=== PATIENT | female | born 1950 | race Native Hawaiian/Other Pacific Islander ===

== ENCOUNTER 2020-05-28 08:06 | Outpatient (CLI) | payer OTHER ==
[2020-05-28 08:21] LABS: PLATELET COUNT 206 K/uL (152-353)
== END 2020-05-28 18:56 | disposition home or self-care (01) ==
LOC: LABW 08:06
PROVIDERS: ATTEND Internal Medicine Gastroenterology
DX: K74.69 Other cirrhosis of liver (principal); Z79.899 Other long term (current) drug therapy
CPT/HCPCS: 36415; 80053; 82172; 82247; 82465; 82947; 82977; 83010; 83883; 84450; 84460; 84478; 85027; 85610

== ENCOUNTER 2020-07-21 10:41 | Outpatient (CLI) | payer OTHER ==
[2020-07-21 10:58] LABS: PLATELET COUNT 147 K/uL (152-353)
[2020-07-21 11:45] LABS: POTASSIUM 4.5 mmol/L (3.6-5.2)
== END 2020-07-21 19:38 | disposition home or self-care (01) ==
LOC: LABW 10:41
PROVIDERS: ATTEND Internal Medicine Cardiovascular Disease
DX: I48.91 Unspecified atrial fibrillation (principal); R06.09 Other forms of dyspnea; Z79.899 Other long term (current) drug therapy
CPT/HCPCS: 36415; 80048; 80076; 83880; 84436; 84443; 85027

== ENCOUNTER 2020-09-02 17:03 | Outpatient (CLI) | payer OTHER ==
[2020-09-02 17:29] LABS: PLATELET COUNT 177 K/uL (152-353)
[2020-09-02 18:43] LABS: POTASSIUM 3.7 mmol/L (3.6-5.2)
== END 2020-09-02 20:36 | disposition home or self-care (01) ==
LOC: LABW 17:03
PROVIDERS: ATTEND Internal Medicine Cardiovascular Disease
DX: I48.91 Unspecified atrial fibrillation (principal); R53.83 Other fatigue; Z09 Encounter for follow-up examination after completed treatment for conditions other than malignant neoplasm
CPT/HCPCS: 36415; 80048; 80162; 85027

== ENCOUNTER 2021-02-08 16:27 | Outpatient (CLI) | payer OTHER ==
[2021-02-09] MEDS ORDERED: BENAZEPRIL HYDR20 MG PO (18:52)
[2021-02-09] MEDS ORDERED: KAPSPARGO SPRIN50 MG PO (18:52)
[2021-02-09] MEDS ORDERED: DIGOX125 MCG PO (18:52)
[2021-02-09] MEDS ORDERED: LYRICA100 MG PO (18:53)
[2021-02-09] MEDS ORDERED: FURO20TA67 PO (18:53)
[2021-02-09] MEDS ORDERED: ZYRTEC ALLGY10 M1 PO (18:54)
[2021-02-09] MEDS ORDERED: METFTAB PO (18:54)
[2021-02-09] MEDS ORDERED: ELIQUIS5 MG PO (18:54)
[2021-02-09] MEDS ORDERED: [UNRECOGNIZED DRUG - REMARK] PO (18:55)
== END 2021-02-08 22:27 | disposition home or self-care (01) ==
LOC: LAB 16:27
PROVIDERS: ATTEND Internal Medicine
DX: R19.7 Diarrhea, unspecified (principal); E11.9 Type 2 diabetes mellitus without complications; R53.83 Other fatigue
CPT/HCPCS: 82272; 83630; 87015; 87045; 87324; 87328; 87329; 87449; 87899

== ENCOUNTER 2021-02-09 18:46 | Emergency (ER) | payer OTHER ==
[~2021-02-09] VITALS: Ht 170.2 cm; Wt 90.7 kg
[2021-02-09] MEDS ORDERED: KAPSPARGO SPRIN50 MG PO (18:52)
[2021-02-09] MEDS ORDERED: DIGOX125 MCG PO (18:52)
[2021-02-09] MEDS ORDERED: BENAZEPRIL HYDR20 MG PO (18:52)
[2021-02-09] MEDS ORDERED: LYRICA100 MG PO (18:53)
[2021-02-09] MEDS ORDERED: FURO20TA67 PO (18:53)
[2021-02-09] MEDS ORDERED: ZYRTEC ALLGY10 M1 PO (18:54)
[2021-02-09] MEDS ORDERED: METFTAB PO (18:54)
[2021-02-09] MEDS ORDERED: ELIQUIS5 MG PO (18:54)
[2021-02-09] MEDS ORDERED: [UNRECOGNIZED DRUG - REMARK] PO (18:55)
[2021-02-09 19:20] LABS: PLATELET COUNT 109 K/uL (152-353)
[2021-02-09 19:24] LABS: POTASSIUM 3.8 mmol/L (3.6-5.2); SODIUM 146 mmol/L (136-145)
[2021-02-09 23:21] VITALS: BP 123/54; TEMP 98.3
== END 2021-02-09 23:21 | disposition home or self-care (01) ==
LOC: ED 18:51
PROVIDERS: Emergency Medicine Emergency Medical Services
DX: E83.42 Hypomagnesemia (principal); Z91.81 History of falling; S20.229A Contusion of unspecified back wall of thorax, initial encounter; R53.1 Weakness; W01.198A Fall on same level from slipping, tripping and stumbling with subsequent striking against other object, initial encounter; Y92.89 Other specified places as the place of occurrence of the external cause
CPT/HCPCS: 80048; 80162; 83735; 84484; 85027; 93005; 96360; 96361; 96365; 96366; 96372; 96375; 99284; J1100; J1650; J3475